=== PATIENT | female | born 1960 | race American Indian/Alaskan Native ===

== ENCOUNTER 2025-08-26 00:08 | Emergency (ER) | payer MEDICAID ==
[2025-08-26] MEDS: Sodium Chloride 0.9% 10 ML Syringe FLUSH PRN (01:36)
[2025-08-26] MEDS: Ondansetron 4 MG/2 ML SDV IVPUSH ONE (01:36)
[2025-08-26 01:38] LABS: BASOPHILS ABSOLUTE AUTO 0.1 K/mm3 (0.0-0.2); BASOPHILS PERCENT AUTO 0.5 % (0.0-1.0); EOSINOPHILS ABSOLUTE AUTO 0.4 K/mm3 (0.0-0.4); EOSINOPHILS PERCENT AUTO 3.5 % (0.0-6.0); IMMATURE GRAN ABSOLUTE AUTO 0.04 K/mm3 (0.00-0.05); IMMATURE GRAN PERCENT AUTO 0.3 % (0.0-0.4); LYMPHOCYTES ABSOLUTE AUTO 2.4 K/mm3 (1.0-4.8); LYMPHOCYTES PERCENT AUTO 20.6 % (24.0-44.0); MEAN PLATELET VOLUME 8.8 fl (9.4-12.3); MONOCYTES ABSOLUTE AUTO 0.5 K/mm3 (0.0-0.8); MONOCYTES PERCENT AUTO 3.8 % (0.0-8.0); NEUTROPHILS ABSOLUTE AUTO 8.4 K/mm3 (1.8-7.7); NEUTROPHILS PERCENT AUTO 71.3 % (41.0-71.0); NRBC ABSOLUTE 0.00 (0.00-0.02); NRBC PERCENT 0.0 % (0.0-0.2); PLATELET COUNT,PLT 347 K/mm3 (150-400); RED BLOOD CELL COUNT 5.50 M/mm3 (4.10-5.30); WHITE BLOOD CELL COUNT,WBC 11.84 K/mm3 (3.9-11.3)
[2025-08-26 02:01] LABS: A/G RATIO 0.5 (1-2); ALANINE AMINOTRANSFERASE,ALT 32.0 U/L (14-59); ASPARTATE AMNIOTRANSFERASE,AST 30.0 U/L (15-37); BILIRUBIN TOTAL 0.4 mg/dL (0.2-1.0); BLOOD UREA NITROGEN,BUN 21.0 mg/dL (7-18); CARBON DIOXIDE,CO2 28.0 mEq/L (21-32); CHLORIDE,CL 100.0 mEq/L (98-107); CREATININE 0.6 mg/dL (0.55-1.02); EST CRCL DRUG DOSING (CG) 79.64 mL/min; ESTIMATED GFR 99.0 mL/min (>60); GLUCOSE RANDOM 209.0 mg/dL (70-99); POTASSIUM,K 4.3 mEq/L (3.5-5.1); PROTEIN TOTAL,TP 8.0 g/dl (6.4-8.2); SODIUM,NA 133.0 mEq/L (136-145)
[2025-08-26] MEDS: Iopamidol 612 MG/ML 100 ML Bottle IVPUSH ONE (02:59)
[2025-08-26 03:27] LABS: APPEARANCE,URINE CLOUDY (Clear); GLUCOSE,URINE 1+ (Negative); OCCULT BLOOD,URINE 2+ (Negative)
[2025-08-26 04:01] LABS: EPITHELIAL CELLS,URINE 0-5 /hpf (0-5); WBC CLUMPS,URINE MODERATE /hpf (NOT SEEN)
[2025-08-26 04:39] LABS: PCO2 VENOUS 35.0 mmHg (41-51); PH,VENOUS 7.49 (7.30-7.40)
[2025-08-26 04:40] LABS: BASE EXCESS VENOUS 3.6 (-4.0-2.0); BICARBONATE,VENOUS 26.7 meq/L (22-26); O2 SATURATION VENOUS 92.3; PO2 VENOUS 56.0 mmHG (40-80)
[2025-08-26] MEDS: cefTRIAXone 1 GM in Water For Injection, Sterile 10 ML IVPUSH ONE (05:38)
== END 2025-08-26 11:42 ==
LOC: JD.ED 00:08
DX: H44.001 Unspecified purulent endophthalmitis, right eye (principal); R11.2 Nausea with vomiting, unspecified; N39.0 Urinary tract infection, site not specified; I10 Essential (primary) hypertension; K21.9 Gastro-esophageal reflux disease without esophagitis; E11.9 Type 2 diabetes mellitus without complications; Z88.8 Allergy status to other drugs, medicaments and biological substances; Z91.018 Allergy to other foods; Z79.899 Other long term (current) drug therapy; Z79.4 Long term (current) use of insulin
CPT/HCPCS: 36415; 74177; 80053; 81001; 82803; 83690; 83735; 83930; 85025; 87086; 93005; 96361; 96374; 96375; 99285; J0696; J2405; J7030; Q9967